=== PATIENT | female | born 1995 | race American Indian/Alaskan Native ===

== ENCOUNTER 2019-07-11 09:33 | Emergency (ER) | payer SELFPAY ==
[~2019-07-11] VITALS: Ht 154.9 cm; Wt 59.7 kg
[2019-07-11 09:44] VITALS: BP 121/70; TEMP 98.7
[2019-07-11 12:50] VITALS: PULSE 95
== END 2019-07-11 12:48 | disposition home or self-care (01) ==
LOC: COL.ER 09:33
DX: R51 Headache (principal)
CPT/HCPCS: J1200; J1885; J7030

== ENCOUNTER 2021-06-16 06:19 | Inpatient (IN) | payer SELFPAY ==
[~2021-06-16] VITALS: Ht 144.8 cm; Wt 71.4 kg
[2021-06-16] VITALS (26 sets, daily range): BP systolic 94–131; BP diastolic 50–75; PULSE 59–88; TEMP 98.1–99.3
--- NOTE | 2021-06-16 07:05 | NUR ---
Translation line used, mixing and dispensing supervisor [place] [id number]. Consents gone over with patient, as well as plan of care, assessment questions. Patient and spouse allowed time for questions using mixing and dispensing supervisor line. Deny any at this time. Method of induction, as well as probability of Dr.Roles breaking patient water discussed through mixing and dispensing supervisor line. Agreeable to plan of care.
[2021-06-16 07:26] LABS: BASO % 0.3 % (0.0-2.0); EOS % 0.6 % (0-4.0); GRAN # 4.4 (1.4-6.5); GRAN % 61.6 % (42.2-75.2); HEMOGLOBIN 11.8 g/dl (12.5-16.0); LYMPH # 2.1 (1.2-3.4); LYMPH % 29.8 % (20.0-51.0); MEAN CELL VOLUME 87 fl (80.0-100.0); MEAN CORPUSCULAR HEMOGLOBIN 28 pg (27.0-31.0); MEAN CORPUSCULAR HGB CONC 32 g/dl (33.0-37.0); MEAN PLATELET VOLUME 10.6 fl (7.4-10.4); MONO # 0.5 (0.1-0.6); MONO % 6.7 % (1.7-9.3); PLATELET COUNT 275 K/mm3 (130-400); RED BLOOD COUNT 4.18 M/mm3 (4.10-5.30)
--- NOTE | 2021-06-16 07:30 | NUR ---
Pit start @ 2mU/min @ this time.
[2021-06-16] MEDS ORDERED: PRENATAL TABLET PO (07:40)
[2021-06-16 07:45] LABS: HEMATOCRIT 36.4 % (37.0-47.0)
--- NOTE | 2021-06-16 08:00 | NUR ---
Assisted up to BR @ this time.
--- NOTE | 2021-06-16 09:47 | NUR ---
Assisted up to BR at this time. To birthing ball following.
--- NOTE | 2021-06-16 10:03 | NUR ---
AROM by , clear fluid noted, odorless. SVE /-2 per . Aminata care provided. Will continue to monitor.
--- NOTE | 2021-06-16 10:30 | NUR ---
Rate of pitocin decreased from 16mU/min to 8mU/min after noting tachysystole contraction pattern.
--- NOTE | 2021-06-16 14:15 | NUR ---
Assisted up to BR for first time post delivery. Steady gait noted. Spontaneous void noted. Aminata care provided.
[2021-06-17 00:30] VITALS: BP 110/52; PULSE 60; TEMP 98.8
[2021-06-17] MEDS ORDERED: IBU600 MG PO (08:01)
[2021-06-17 09:00] VITALS: BP 105/43; PULSE 77; TEMP 98.3
[2021-06-17 12:30] VITALS: BP 113/57; PULSE 66; TEMP 98.4
== END 2021-06-17 15:45 | disposition home or self-care (01) | DRG 807 ==
LOC: LDR 06:19 → OB 14:00
PROVIDERS: ADMIT Obstetrics & Gynecology
PROC: 10E0XZZ Delivery of Products of Conception, External Approach (ICD-10-PCS; principal; 2021-06-16)
PROC: 10907ZC Drainage of Amniotic Fluid, Therapeutic from Products of Conception, Via Natural or Artificial Opening (ICD-10-PCS; 2021-06-16)
DX: O48.0 Post-term pregnancy (principal); Z37.0 Single live birth; Z3A.41 41 weeks gestation of pregnancy
CPT/HCPCS: J2590; J7120

== ENCOUNTER 2023-02-17 12:34 | Emergency (ER) | payer SELFPAY ==
[~2023-02-17] VITALS: Ht 150 cm; Wt 69.5 kg
[~2023-02-17 12:34] MED LIST: IBU600 MG PO; PRENATAL TABLET PO; PRIMACARE SOFT1 EACH PO
[2023-02-17 12:44] VITALS: TEMP 99.3
[2023-02-17 13:12] LABS: BASO % 0.1 % (0.0-2.0); EOS % 0.4 % (0.0-4.0); GRAN # 5.7 K/mm3 (1.4-6.5); GRAN % 76.6 % (42.2-75.2); HEMOGLOBIN 12.1 g/dl (12.5-16.0); LYMPH # 1.2 K/mm3 (1.2-3.4); LYMPH % 15.8 % (20.0-51.0); MEAN CELL VOLUME 88 fl (80.0-100.0); MEAN CORPUSCULAR HEMOGLOBIN 30 pg (27-31); MEAN CORPUSCULAR HGB CONC 34 g/dl (33.0-37.0); MEAN PLATELET VOLUME 9.6 fl (7.4-10.4); MONO # 0.5 K/mm3 (0.1-0.6); MONO % 6.3 % (1.7-9.3); PLATELET COUNT 289 K/mm3 (130-400); RED BLOOD COUNT 4.04 M/mm3 (4.10-5.30); REDCELL DISTRIBUTION WIDTH-CV 13.9 % (11.5-14.5)
[2023-02-17 13:21] LABS: HEMATOCRIT 35.7 % (37.0-47.0)
[2023-02-17 13:28] LABS: BILIRUBIN,TOTAL 0.3 mg/dL (0.2-1.2); CALCIUM 8.5 mg/dL (8.4-10.2); CREATININE, serum 0.52 mg/dL (0.57-1.11); POTASSIUM 3.5 mmol/L (3.5-4.5); TOTAL PROTEIN 6.8 gm/dL (6.2-8.1)
[2023-02-17 14:57] LABS: COLLECTION METHOD CLEAN CATCH
[2023-02-17 15:14] LABS: MUCOUS Present (NOT PRESENT); URINE BACTERIA None Seen /hpf (NONE SEEN); URINE RBC 0-2 /hpf (0-2)
[2023-02-17 15:17] LABS: PH 8.5 (5.0-8.5); URINE APPEARANCE Cloudy (CLEAR/HAZY); URINE BLOOD Negative (NEGATIVE); URINE COLOR Yellow (YELLOW); URINE GLUCOSE Negative (NEGATIVE); URINE KETONE Negative (NEGATIVE); URINE NITRATE Negative (NEGATIVE); URINE PROTEIN(semi-quant) Negative (NEGATIVE); URINE UROBILINOGEN 0.2 E.U/dL (0.2-1.0)
[2023-02-17 15:24] VITALS: BP 91/72; PULSE 88
== END 2023-02-17 15:23 | disposition home or self-care (01) ==
LOC: COL.ER 12:34
PROVIDERS: Emergency Medicine
DX: O26.893 Other specified pregnancy related conditions, third trimester (principal); O21.9 Vomiting of pregnancy, unspecified; R10.84 Generalized abdominal pain; R51.9 Headache, unspecified; Z3A.29 29 weeks gestation of pregnancy; Z20.822 Contact with and (suspected) exposure to COVID-19
CPT/HCPCS: J2765; J7120